=== PATIENT | male | born 1970 | race African-American/Black ===

== ENCOUNTER 2018-03-06 06:21 | Emergency (ER) | payer SELFPAY ==
[~2018-03-06] VITALS: Ht 172.7 cm; Wt 79.8 kg
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
--- NOTE | 2018-03-06 06:35 | NUR ---
Seen and evaluated by Dr. Barajas.
[2018-03-06] MEDS ORDERED: ASPIR LOW 81 MG (06:38)
[2018-03-06] MEDS ORDERED: ELIQUIS 5 MG (06:38)
[2018-03-06] MEDS ORDERED: IBUPROFEN 600 MG TABLET ONE (06:45)
[2018-03-06] MEDS ORDERED: ACETAMINOPHEN ES 500 MG TABLET PO ONE (06:45)
[2018-03-06] MEDS ORDERED: ACETAMINOPHEN ES 500 MG TABLET ONE (06:45)
[2018-03-06] MEDS ORDERED: IBUPROFEN 600 MG TABLET PO ONE (06:45)
--- NOTE | 2018-03-06 06:47 | NUR ---
Medicated with Motrin and Tylenol ES. Bradycardic; HR in the 50-51. Dr. Barajas aware. Xrays done.
--- NOTE | 2018-03-06 07:07 | NUR ---
Report given to Rhonda LOERA.
--- NOTE | 2018-03-06 07:57 | NUR ---
Patient still has some pains at the right lower extremity with weight bearing activity, MD aware. Patient is able to walk slowly & unassisted.
--- NOTE | 2018-03-06 07:59 | NUR ---
Patient discharged to home in stable conditon & slow steady gait. Written and verbal after care instructions given to patient. Patient verbalizes understanding of instructions.
--- NOTE | 2018-03-06 08:15 | NUR ---
Crutches dispensed. Pt instructed on proper use of crutches. Patient able to demonstrate correct use of crutches. Patient says an [employer] ride will pick him up.
--- NOTE | 2018-03-06 08:16 | NUR ---
Patient says the crutches helped decrease the discomfort with ambulation.
== END 2018-03-06 08:16 | disposition home or self-care (01) ==
LOC: ER 06:27
DX: G89.11 Acute pain due to trauma (principal); M25.551 Pain in right hip; V47.5XXA Car driver injured in collision with fixed or stationary object in traffic accident, initial encounter; Y93.89 Activity, other specified; Y92.488 Other paved roadways as the place of occurrence of the external cause; Y99.8 Other external cause status
CPT/HCPCS: 73502; A4663; A9150